=== PATIENT | male | born 1975 | race Hispanic/Latino ===

== ENCOUNTER 2019-09-17 13:36 | Emergency (ER) | payer SELFPAY ==
[~2019-09-17] VITALS: Ht 172.7 cm; Wt 81.6 kg
--- NOTE | 2019-09-17 14:49 | Emergency Department Note ---
History of Present Illnes History of Present Illness Chief Complaint: Extremity Trauma/Pain History of Present Illness This is a 44 year old male slammed tool box on tip of left ring finger yesterday, states it was deformed at the time and he attempted to set bone himself concerned it is broken c/o throbbing pain. Historian: Patient Arrival Mode: Car Spike Machine Feeder Required: No Onset (how long ago): day(s) (yesterday) Location: left ring finger Quality: pain Radiation: Reports non-radiation Severity: moderate Onset quality: sudden Timing of current episode: constant Chronicity: new Context: Denies recent illness Relieving factors: none Exacerbating factors: none Associated symptoms: Reports denies other symptoms Treatments prior to arrival: none Past Medical/Family History Physician Review I have reviewed the patient's past medical and family history. Any updates have been documented here. Past Medical History Recent Fever: No Clinical Suspicion of Infectio: No New/Unexplained Change in Ment: No Past Medical History: None Past Surgical History: None Social History Smoking Cessation: Never Smoker Counseling Performed: No Alcohol Use: None Any Illegal Drug Use: No Physically hurt or threatened: No Family History Family history of heart diseas: No Other Any Pre-Existing Lines (PICC,: No Review of Systems Review of Systems Constitutional: Reports no symptoms EENTM: Reports no symptoms Cardiovascular: Reports no symptoms Respiratory: Reports no symptoms Gastrointestinal: Reports no symptoms Genitourinary: Reports no symptoms Musculoskeletal: Reports as per HPI Integumentary: Reports no symptoms Neurological: Reports no symptoms Psychological: Reports no symptoms Endocrine: Reports no symptoms Hematological/Lymphatic: Reports no symptoms Physical Exam Related Data Allergies: Coded Allergies: No Known Allergies (Unverified , 09/17/19) Triage Vital Signs Vital Signs Date Time Temp Pulse Resp B/P (MAP) Pulse Ox O2 Delivery O2 Flow Rate FiO2 09/17/19 13:45 98.5 100 18 167/92 100 Room Air Vital signs reviewed: Yes Physical Exam CONSTITUTIONAL Constitutional: Present well-developed, Present well-nourished HENT HENT: Present normocephalic, Present atraumatic, Present oropharynx clear/moist, Present nose normal HENT L/R: Present left ext ear normal, Present right ext ear normal EYES Eyes: Reports PERRL, Reports conjunctivae normal NECK Neck: Present ROM normal PULMONARY Pulmonary: Present effort normal, Present breath sounds normal CARDIOVASCULAR Cardiovascular: Present regular rhythm, Present heart sounds normal, Present capillary refill normal, Present normal rate GASTROINTESTINAL Abdominal: Present soft, Present nontender, Present bowel sounds normal GENITOURINARY Genitourinary: Present exam deferred SKIN Skin: Present warm, Present dry MUSCULOSKELETAL Musculoskeletal: Present other (mild swelling of left distal ring finger, 2 cm laceration on palmar surface at crease of DIP, 1 cm laceration at radial side of fingernail at base of nail, N/V intact) NEUROLOGICAL Neurological: Present alert, Present oriented x 3, Present no gross motor or sensory deficits PSYCHOLOGICAL Psychological: Present mood/affect normal, Present judgement normal Results Imaging Imaging results reviewed: Yes Impressions HAND 3+ VIEWS LEFT - 3 views HISTORY: Pain COMPARISON: None available. FINDINGS: Bones: Tiny bone fragment projected adjacent to the distal phalanx of the fourth finger, with deformity of the tuft. Overlying soft tissue swelling. Joints: The joint spaces are well-maintained. Soft tissues: Tiny metallic densities projected medial to the fifth metacarpophalangeal joint. IMPRESSION: Nondisplaced fracture of the tuft of the fourth finger with overlying soft tissue swelling, possible laceration. Signed by: Dr. Kaylan Garrido M.D. on 09/17/2019 3:28 PM Assessment & Plan Medical Decision Making MDM check xrays, r/o fx, give antibiotics, update Tetanus Reassessment Reassessment I OFFERED ADMISSION BUT HE DOES NOT WANT, WILL DRESS FINGER/SPLINT, DC WITH CIPRO/BACTRIM, TYL #3, OTC IBUPROFEN, F/U DR HERNANDEZ THURSDAY Assessment & Plan Final Impression: (1) Open fracture of tuft of distal phalanx of finger Depart Disposition: HOME, SELF-CARE Last Vital Signs Date Time Temp Pulse Resp B/P (MAP) Pulse Ox O2 Delivery O2 Flow Rate FiO2 09/17/19 13:45 98.5 100 18 167/92 100 Room Air MARK JORDAN MD Sep 17, 2019 14:49
[2019-09-17] MEDS ORDERED: TETANUS/DIPHTHERIA TOX ADULT 0.5 ML SYR IM ONE (15:00)
--- NOTE | 2019-09-17 15:31 | Diagnostic Imaging Report ---
HAND 3+ VIEWS LEFT - 3 views HISTORY: Pain COMPARISON: None available. FINDINGS: Bones: Tiny bone fragment projected adjacent to the distal phalanx of the fourth finger, with deformity of the tuft. Overlying soft tissue swelling. Joints: The joint spaces are well-maintained. Soft tissues: Tiny metallic densities projected medial to the fifth metacarpophalangeal joint. IMPRESSION: Nondisplaced fracture of the tuft of the fourth finger with overlying soft tissue swelling, possible laceration. Signed by: Dr. Kaylan Garrido M.D. on 09/17/2019 3:28 PM
== END 2019-09-17 16:29 | disposition home or self-care (01) ==
LOC: ER 13:46
DX: S62.635B Displaced fracture of distal phalanx of left ring finger, initial encounter for open fracture (principal); W22.8XXA Striking against or struck by other objects, initial encounter
CPT/HCPCS: 90471; 90714; 99283